=== PATIENT | female | born 1965 | race Caucasian/White ===

== ENCOUNTER 2018-04-08 08:56 | Emergency (ER) | payer MEDICARE ==
--- NOTE | 2018-04-08 09:47 | RAD ---
RIGHT ANKLE 3 VIEWS: HISTORY: Injury. COMPARISON: None. FINDINGS: There is a nondisplaced avulsion fracture of the tip of the distal lateral malleolus. Moderate overl tom soft tissue swelling. Evidence of old medial malleolar injury. IMPRESSION: Nondisplaced incomplete avulsion fracture of the distal fibula below the level of the syndesmosis in a transverse orientation. POS: [facility]
== END 2018-04-08 10:10 | disposition home or self-care (01) ==
LOC: MADERS 08:56
DX: S82.64XA Nondisplaced fracture of lateral malleolus of right fibula, initial encounter for closed fracture (principal); Z79.899 Other long term (current) drug therapy; X50.1XXA Overexertion from prolonged static or awkward postures, initial encounter

== ENCOUNTER 2024-04-27 10:22 | Emergency (ER) | payer MEDICARE, OTHER | END 2024-04-27 11:45 | disposition home or self-care (01) | LOC: MADERS 10:22 | DX: S90.121A Contusion of right lesser toe(s) without damage to nail, initial encounter (principal); I10 Essential (primary) hypertension; F32.A Depression, unspecified; F17.290 Nicotine dependence, other tobacco product, uncomplicated; E03.9 Hypothyroidism, unspecified; W22.8XXA Striking against or struck by other objects, initial encounter; Y93.01 Activity, walking, marching and hiking; Z79.899 Other long term (current) drug therapy; Z63.8 Other specified problems related to primary support group | CPT/HCPCS: 99283 ==

== ENCOUNTER 2024-05-10 08:58 | Emergency (ER) | payer OTHER | END 2024-05-10 10:20 | disposition home or self-care (01) | LOC: MADERS 08:58 | DX: S90.32XA Contusion of left foot, initial encounter (principal); I10 Essential (primary) hypertension; F17.290 Nicotine dependence, other tobacco product, uncomplicated; X58.XXXA Exposure to other specified factors, initial encounter | CPT/HCPCS: 99283 ==